=== PATIENT | male | born 1965 | race Caucasian/White ===

== ENCOUNTER 2017-04-14 15:52 | Inpatient (IN) | payer MEDICARE, OTHER ==
[~2017-04-14] VITALS: Ht 152.4 cm; Wt 47.4 kg
--- NOTE | ~2017-04-14 | IDS ---
Interim Discharge Summary [facility] [address] [place]. [address] NAME: SANDI MCGRATH : 69 STATUS : ADM IN PAT#: [id number] AGE: 51 ADM/REG DATE : 04/14/17 MR#: [id number] REPORT SERV DATE: 04/18/17 DICTATED BY: KARI DOWNS DATE: 04/18/17 REPORT STATUS : Draft TRANSCRIBED BY: MODL DATE: 04/18/17 ADMISSION DATE: 04/14/2017 DISCHARGE DATE: PROBLEM LIST: 1. Failure to thrive with severe protein-calorie malnutrition. 2. Major depression, Remeron was started this admission. 3. Pseudomonas bacteremia. 4. Multiple electrolyte abnormalities. 5. Chronic decubitus ulcer. 6. Chronic paraplegia secondary to spina bifida with multiple surgeries. HISTORY OF PRESENT ILLNESS: This is a 51-year-old male patient who lives at home with the family, was brought to the hospital with a "heart is hurting." Please see dictated H and P. HOSPITAL COURSE: He was initially hospitalized for sepsis with the unknown etiology. However, he became very stabilized within a short time. I was not sure whether the patient had real true infection or not. However, he was sure that he had a severe dehydration, malnutrition. He is not eating at home at all and he has been having this issue for at least four to five years since his mother . The patient was put on Remeron and had evaluation with Dr. Gomez who was covering Dr. Baez, agreed, continued on Remeron. And he was on a replacement of all the electrolytes. However, he still not eating very much and he still refused to take the pills and threw up medications, although he says he will eat and drink and take the medication in order to live. Interestingly, the patient's blood culture one out of two came back positive with Enterobacter cloacae. Because of this bacteremia, the patient was seen by Dr. Lynn for possible issue with a soft capsular fluid collection. Dr. Lynn does not think the patient has an infection under that fluid collection, he thinks it is natural course after the hematoma from the surgery on the last admission two weeks ago. And Dr. Greenberg has been managing his antibiotics. Currently, he is on cefepime every six hours. He was put on the IV fluid when correcting multiple electrolyte abnormalities. He is still throwing up and refused pills; however, he was told that either he will survive if he takes the medication and eat and then otherwise, he will be on hospice care and he chose to be alive and take medications, and he and his family decided not to have any feeding tubes. His father also mentioned he has been dealing with this issue for many years and the feeding tube is not appropriate care for him. And after he was discussed with the family members again and father decided that they would like to go to half-way facility to recover first. Many of the physicians have been informing the patient and family regarding his failure to thrive and severe dehydration issue with depression and so far, the patient himself voicing that he understood, and he will take care of himself in terms of his nutrition srinivasan. Even palliative care and hospice were discussed at this point. The patient is not Interim Discharge Summary [address] [address] NAME: SANDI MCGRATH : 69 STATUS : ADM IN [facility]#: [id number] AGE: 51 ADM/REG DATE : 04/14/17 MR#: [id number] REPORT SERV DATE: 04/18/17 DICTATED BY: KARI DOWNS DATE: 04/18/17 REPORT STATUS : Draft TRANSCRIBED BY: DREW DATE: 04/18/17 transferred to that care. Maximizing or replacement and minimizing IV replacement for the next 24 to 48 hours before the discharge to half-way facility. EKL/MODL Kari Downs M.D. / [id number] CC: Meghan Rausch [facility]
--- NOTE | ~2017-04-14 | DS ---
Discharge Summary [place] [id number] [facility] [place]. [address] NAME: SANDI MCGRATH : 69 STATUS : DIS IN PAT#: [id number] AGE: 51 ADM/REG DATE : 04/14/17 MR#: [id number] REPORT SERV DATE: 04/20/17 DICTATED BY: KARI DOWNS DATE: 04/19/17 REPORT STATUS : Draft TRANSCRIBED BY: MODL DATE: 04/19/17 ADMISSION DATE: 04/14/2017 DISCHARGE DATE: 04/19/2017 DISCHARGE DIAGNOSES: 1. Failure to thrive. 2. Severe protein-calorie malnutrition with severe dehydration. 3. Paraplegia. 4. Major depression disorder, Remeron was started. 5. Enterobacter bacteremia, one out of two. Dr. Greenberg recommended an antibiotic treatment until 04/27/2017 with cefepime. 6. Subcapsular hematoma on the liver, Dr. Lynn does not think that it is any source of infection. 7. Chronic decubitus ulcer in the sacrum area in the leg. HISTORY OF PRESENT ILLNESS: This is a 51-year-old male patient who came from home with a complaint about "heart." Please see dictated H and P, and please see the first page of the emergency triage page. HOSPITAL COURSE: Initially, he was admitted to hospital with the sepsis with unknown origin based on the criteria. However, he significantly improved within a few hours after the hydration. He does not look to have any other source of infection. At that time, he did not have a good amount of urine, but it was still clear and his ileal conduit bag. Seen by Dr. Greenberg. Initially, he got a dose of antibiotics including vancomycin and Zosyn. We stopped the antibiotics and tried to look for another reason for him being stressed. Definitely he was dehydrated. He was not eating and drinking at all. We had a conversation with the father and then looked at the old pictures. The story goes back to five years ago when his mother . Since his mother , the patient is likely going down and then gradually it gotten to the point that he does not eat and drink and he lost all the motivations. Interestingly, I was reviewing all the medical records from the [facility]. He had a same stated complaint when he came the last time. Anyhow, the patient has been stabilized, did not have any other symptoms from the multiple electrolyte imbalance, although he has a critical level of low potassium, magnesium, calcium, and albumin levels, he is not in any distress. Therefore, the patient was put on the hydration and also consulted psychiatrist. Dr. Gomez, who was covering Dr. Baez, came by and diagnosed with a major depression and agreed using the Remeron. The Remeron was started on this admission. Even if we had a long conversation with the patient and family, he is still not taking potassium pills, and up until yesterday, he was trying to throwing up the potassium pill. Otherwise, he is taking other medicines well. He voiced that he does not want a feeding tube, but he wants to eat and drink in the life and he will do it, but he has not been doing that much, but it is gradually getting better. Now, again, he is taking all his supplement electrolyte and trying to eat meals and his electrolytes have been replaced. The hardest of the pill that he does not want to take is potassium. On discharge, we are going to put him on the 40 mEq three times a day and diagnosed with failure to thrive and hydration, severe malnutrition, Discharge Summary [address] [place]. [address] NAME: SANDI MCGRATH : 69 STATUS : DIS IN PAT#: [id number] AGE: 51 ADM/REG DATE : 04/14/17 MR#: [id number] REPORT SERV DATE: 04/20/17 DICTATED BY: KARI DOWNS DATE: 04/19/17 REPORT STATUS : Draft TRANSCRIBED BY: DREW DATE: 04/19/17 and major depression along with that and then explained to the father and he voiced understanding, agreed and then father changed the disposition to [facility] facility and they elected to [facility]. The patient will be discharged to [facility] for IV antibiotics until 04/27/2017 and rehabilitation. DISCHARGE MEDICATIONS: 1. Metoprolol 12.5 mg twice a day. 2. Cefepime until 04/27/2017. 3. Potassium 40 mEq twice a day. 4. Mag oxide 800 twice a day. 5. Os-Ivan two tablets twice a day. DISPOSITION: The patient is discharged to [facility] in stable condition. He has a very poor prognosis, and I discussed this prognosis and then plan of care and regarding new prognosis and discharging coordination, and the patient and family education more than 30 minutes. EKL/MODL aKri Downs M.D. / [id number] CC: Meghan Rausch [facility]
--- NOTE | ~2017-04-14 | CN ---
Consultation Report [facility] [address] [place]. [address] NAME: SANDI MCGRATH : 69 STATUS : ADM IN PAT#: [id number] AGE: 51 ADM/REG DATE : 04/14/17 MR#: [id number] REPORT SERV DATE: 04/16/17 DICTATED BY: LILIA LYNN III DATE: 04/16/17 REPORT STATUS : Draft TRANSCRIBED BY: MODTerrie DATE: 04/16/17 DATE OF CONSULTATION: 04/16/2017 Consultation Note The patient is a 51-year-old, cerebral palsy, spina bifida patient who I have been aware of for a number of weeks. He presents now with reported chest pain and a negative workup to this point. He also had multiple electrolyte problems including a diminished potassium, magnesium, calcium, severe malnutrition. The patient is status post laparoscopic cholecystectomy a month ago on 03/15/2017, that included a cholecystectomy for acute disease and a liver biopsy. The patient is along with a number of different problems primarily related to poor p.o. intake which is most likely related to depression. The past history on the patient is significant in that he has spina bifida, paralysis partially below the hip with neurogenic bladder as well as neurogenic neuropathies below the waist. He has the ostomy in the right lower quadrant which is an ileostomy due to his neurogenic bladder. He allegedly had a relocation of his rectum although it seems to be functioning normally. He does have bowel incontinence and no real control of his sphincter but there is a weak tone that he apparently cannot control. He has a history of nephrostomy tube draining to the right. He lives with his father who is in advanced age and his brother who helps take care of him. He has been in a declining state of health over the last few years but since his mother , he has been extremely depressed and anorexic. The patient had an EGD by Dr. Liu on 03/13/2017, that showed very little severe acute change at that time. The patient's home medications have included Bactrim DS and potassium but is not clear whether he has been taking his medications. PHYSICAL EXAMINATION: GENERAL: He is ill appearing, deformed young man, who is oriented x3, but not exactly with normal mental capacity or function. He does not have lateralization in his head. CHEST: His chest was relatively clear with decreased inspiratory effort. GI: His abdomen was soft, nontender with well-healed scars and no tenderness, no CVA tenderness on the right, and no tenderness in the lower abdomen even though he has multiple scars. He had a GI workup that showed no bowel obstruction with a relatively normal to short transit time during his past admission. RECTUM: The rectal exam showed no impaction and there was 1 pill then in his rectal vault that I could not get it out. He still had some kind of very, very weak rectal and is essentially incontinent of stool. He has had liquid stools according to his mother since he went home from the hospital last time. The extremity showed him to have significant decubiti on the left side. In the buttock region he has a relatively large decubitus ulcer that is left-sided 6 x 8.5 x 1 cm with a lot of slough over it. EXTREMITIES: He has another ulcer in the left foot on the lateral aspect of this very deformed foot, it is 2.5 x 1.9 x 0.0 that is a fibrin-covered crusty abrasive or decubitus ulceration. Consultation Report [place] [id number] [facility] [place]. [address] NAME: SANDI MCGRATH : 69 STATUS : ADM IN [facility]#: [id number] AGE: 51 ADM/REG DATE : 04/14/17 MR#: [id number] REPORT SERV DATE: 04/16/17 DICTATED BY: LILIA LYNN III DATE: 04/16/17 REPORT STATUS : Draft TRANSCRIBED BY: DREW DATE: 04/16/17 DATA: CAT scan is reviewed and shows a subcapsular hematoma that is intact without really obvious gas within it and there is 1 small area of either trapped gas or lung bleb that is in the area near the hematoma but I do not believe it is indicative of an infection therein. The patient has had adequate antibiotic coverage post cholecystectomy for his Klebsiella infections at that time. The impression on the patient is primarily plagued with anorexia secondary to severe depression without evidence of any surgical remedy for this young man. I have talked to him in terms of his not living if he does not eat and he states clearly that he wants to live but he has not acted out this ideation. We will try him on some Megace and treat his sepsis although the etiology of which is not clear since his urine really does not look like the culprit but the decubitus ulcers and/or some type of intraabdominal infection certainly could be problematic but I cannot justify at this point in the type of interventional therapy. RB/MODL Lilia Lynn III, M.D. / [id number] CC: Meghan Rausch II
--- NOTE | ~2017-04-14 | HP ---
History And Physical [place] [address] [place]. [address] NAME: SANDI MCGRATH : 69 STATUS : ADM IN PAT#: [id number] AGE: 51 ADM/REG DATE : 04/14/17 MR#: [id number] REPORT SERV DATE: 04/14/17 DICTATED BY: ML LUBIN DATE: 04/14/17 REPORT STATUS : Draft TRANSCRIBED BY: MODL DATE: 04/14/17 DATE OF ADMISSION: 04/14/2017 CHIEF COMPLAINT: Shortness of breath. HISTORY OF PRESENT ILLNESS: A 51-year-old white male with history of cerebral palsy and spina bifida, was brought in by his father with chief complaint of shortness of breath. Unfortunately, the patient is a poor historian, and his father has gone home. The patient had a cholecystectomy last week. While he had a cholecystectomy and was discharged home on 03/27/2017 with a diagnosis of biliary sepsis, post cholecystectomy, he had acute renal failure and possible partial bowel obstruction. All this remained stable, and he was discharge home. He was brought in by his father, complaining of chest pain. Family had refused rehab. The patient is a very poor historian. He was found to have numerous electrolyte abnormalities, and thus, we have been asked to admit the patient. PAST MEDICAL HISTORY: Recent cholecystectomy with postop complications including biliary sepsis and protein-calorie malnutrition, spina bifida with paraplegia, ileal conduit, rectal reimplantation with persistent bowel incontinence, previous cholecystectomy with takedown, left posterior pelvis decubitus ulcer with associated chronic osteomyelitis, previous right below-knee amputation, left ankle wound, chronic postprandial diarrhea, chronic postprandial nausea, fatty liver on liver biopsy, severe protein-calorie malnutrition, and nonobstructing kidney stones. OPERATIONS: He had an open trochanter placement with laparoscopic extensive adhesiolysis and enterolysis and laparoscopic intraoperative cholangiogram and he had a laparoscopic cholecystectomy and had an EGD by Dr. Liu on 03/13/2017. He had numerous corrective bowel and bladder surgeries as a child and also multiple orthopedic surgeries as a child. SOCIAL HISTORY: The patient resides with his father. The patient is verbal but is a very poor historian. He does not drink alcohol or smoke or use illicit drugs. HOME MEDICATIONS: The patient takes Bactrim DS b.i.d. He takes potassium 25 mg b.i.d., and otherwise, does not really take any medications. FAMILY HISTORY AND REVIEW OF SYSTEMS: Unobtainable except as in HPI. PHYSICAL EXAMINATION: VITAL SIGNS: Blood pressure is 101/73, temp 90.6, pulse 119, respirations 16, and O2 saturation is 95% on room air. CONSTITUTIONAL: The patient is alert, appropriate. PSYCHIATRIC: Oriented x3. His memory is not intact. His affect appropriate. HEENT: Atraumatic, normocephalic. Oral palate without lesion. He does have some bitemporal wasting. He has dry oral mucosa. NECK: Supple with no JVD or lymphadenopathy. There is no thyromegaly. RESPIRATORY: Clear to percussion and auscultation. No chest wall tenderness. CARDIOVASCULAR: Tachycardic with no murmurs, gallops, or rubs. History And Physical [address] [place]. [address] NAME: SANDI MCGRATH : 69 STATUS : ADM IN [facility]#: [id number] AGE: 51 ADM/REG DATE : 04/14/17 MR#: [id number] REPORT SERV DATE: 04/14/17 DICTATED BY: ML LUBIN DATE: 04/14/17 REPORT STATUS : Draft TRANSCRIBED BY: DREW DATE: 04/14/17 ABDOMEN: Soft with no tenderness, no rebound. He has well healed cholecystectomy scars. He does have an ileal conduit. EXTREMITIES: He has a stage IV decubitus ulcer which appears clean on the left hip. It does have a slight smell. On his left heel, he has a small ulcer, which appears clean and dry. NEUROLOGIC: He has some spasticity. He has no sensation in his lower extremities. He can move his left lower extremity. He can move his arms. SKIN: His perineum is wet as he has chronic fecal incontinence. LYMPHATIC: There is no obvious adenopathy in neck, axilla, or femoral region. IMAGING: CTA of the chest reveals moderate-sized right pleural effusion, otherwise, no evidence of PE. He had a sodium of 131, potassium 2.5, chloride 87, CO2 of 30, glucose 102, calcium 5.2, magnesium 0.8, and troponin less than 0.02. White count 28, hemoglobin 12.7, and platelets 392. IMPRESSIONS/PLAN: 1. Sepsis of unclear source. Abdominal pelvic CT will be performed. Could also be secondary to chronic osteomyelitis of left hip. We will empirically place the patient on IV vancomycin and IV Zosyn. 2. Numerous electrolyte abnormalities, we will replete. 3. Poor IV access. We will place PICC line. 4. Severe protein calorie malnutrition. 5. Sepsis of unclear source. We will ask ID to see. 6. Left decubitus ulcer of ischium. We will ask Wound Care to see. 7. Cerebral palsy and spina bifida. 8. Recent cholecystectomy. 9. Ileal conduit. NGM/MODL Ml Lubin MD / [id number] CC: Meghan Rausch II
[~2017-04-14 15:52] MED LIST: *UNABLE1; BACDS PO; IODOSORB TOP; KLYTECL PO; LOM PO; PROTONIX PO
[2017-04-14 16:38] LABS: BASOPHILS 0.1 %; BASOPHILS ABSOLUTE 0.02 10/3/uL (0.0-0.16); EOSINOPHILS 0.1 %; EOSINOPHILS ABSOLUTE 0.03 10/3/uL (0.0-0.53); IMMATURE GRANULOCYTES 0.8 %; IMMATURE GRANULOCYTES ABSOLUTE 0.22 10/3/uL (0.0-0.11); LYMPHOCYTES 6.2 %; LYMPHOCYTES ABSOLUTE 1.74 10/3/uL (0.67-4.30); MEAN CORPUS HGB CONC 33.7 g/dL (32.0-36.0); MEAN CORPUSCULAR HEMOGLOB 29.2 pg (26.0-34.0); MEAN PLATELET VOLUME 11.8 fL (9.2-13.0); MONOCYTES 6.2 %; MONOCYTES ABSOLUTE 1.75 10/3/uL (0.21-1.20); NEUTROPHILS 86.6 %; NEUTROPHILS ABSOLUTE 24.51 10/3/uL (2.02-8.40); RBC DISTRIBUTION WIDTH 15.7 % (12.0-16.0)
[2017-04-14 16:42] LABS: ER CBC TAT 0 Hrs 12 Mins; HEMATOCRIT 37.7 % (40.0-51.0); HEMOGLOBIN 12.7 g/dL (13.6-17.8); MANUAL DIFF NO %; MEAN CORPUSCULAR VOLUME 86.7 fL (80-100); PLATELET COUNT 392 10/3/uL (150-400); RED CELL COUNT 4.35 10/6/uL (4.7-6.1); WHITE BLOOD CELLS 28.3 10/3/uL (4.5-10.5)
[2017-04-14 16:45] LABS: INTERNATIONAL NORMAL RATI 1.2 UNITS (-); PARTIAL THROMBO TIME 33.7 SEC (22.5-37.2); PROTIME (NOT ORD) 15.3 SEC (12.0-14.5)
[2017-04-14 16:55] LABS: BUN (BLOOD UREA NITROGEN) 9 MG/DL (6-23); CHEST PAIN PROFILE TAT 0 Hrs 25 Mins; CO2 (CARBON DIOXIDE) 30 MMOL/L (24-34); GLUCOSE, SERUM 102 MG/DL (60-99); TROPONIN I <0.02 NG/ML (<0.05)
[2017-04-14 16:57] LABS: POTASSIUM, SERUM 2.5 MMOL/L (3.5-5.3); SODIUM, SERUM 131 MMOL/L (135-148)
[2017-04-14 16:58] LABS: CALCIUM, SERUM 5.2 MG/DL (8.5-10.4); CHLORIDE, SERUM 87 MMOL/L (96-112); CREATININE 1.34 MG/DL (0.70-1.30); GFR AFRICAN AMERICAN 72 ML/MIN (>=60); GFR NON AFRICAN AMERICAN 62 ML/MIN (>=60)
[2017-04-14 17:01] LABS: ER DIFF TAT 0 Hrs 31 Mins; LYMPHOCYTES 1 %; LYMPHOCYTES ABSOLUTE (CALC) 0.28 10/3/uL (0.67-4.30); MONOCYTES 5 %; MONOCYTES ABSOLUTE (CALC) 1.42 10/3/uL (0.21-1.20); PLATELET ESTIMATE ADQ (ADEQUATE); RBC MORPHOLOGY NORM (NORMAL); SEGMENTED NEUTROPHIL (0) 94 %; TOTAL NUCLEATED CELLS 100
[2017-04-14 17:37] LABS: D-DIMER QUANTITATIVE 3.08 ug/mLFEU (< 0.50)
[2017-04-14 21:32] LABS: LACTATE 4.2 MMOL/L (0.3-2.4)
[2017-04-15 06:54] LABS: HEMATOCRIT 34.5 % (40.0-51.0); HEMOGLOBIN 11.6 g/dL (13.6-17.8); MEAN CORPUS HGB CONC 33.6 g/dL (32.0-36.0); MEAN CORPUSCULAR VOLUME 86.3 fL (80-100); PLATELET COUNT 334 10/3/uL (150-400); RBC DISTRIBUTION WIDTH 15.7 % (12.0-16.0); WHITE BLOOD CELLS 21.5 10/3/uL (4.5-10.5)
[2017-04-15 06:55] LABS: MANUAL DIFF YES %
[2017-04-15 07:21] LABS: BAND NEUTROPHILS 1 %; BURR CELLS 1+ (3-10/OIF) (0-2/OIF); HYPERSEGMENTED NEUT FEW (6-10%) % (0-5); LYMPHOCYTES 1 %; LYMPHOCYTES ABSOLUTE (CALC) 0.22 10/3/uL (0.67-4.30); MONOCYTES 5 %; MONOCYTES ABSOLUTE (CALC) 1.08 10/3/uL (0.21-1.20); NEUTROPHILS ABSOLUTE (CALC) 20.21 10/3/uL (2.02-8.40); PLATELET ESTIMATE ADQ (ADEQUATE); POIKILOCYTOSIS 1+ (5-10/OIF) (0-5/OIF); SEGMENTED NEUTROPHIL (0) 93 %; TOTAL NUCLEATED CELLS 100
[2017-04-15 07:22] LABS: TOXIC GRANULATION 1+; VACUOLATED NEUTROPHILES 1+
[2017-04-15 08:40] LABS: A/G RATIO 0.3 (0.7-1.9); ALBUMIN 1.3 G/DL (3.5-5.0); CO2 (CARBON DIOXIDE) 27 MMOL/L (24-34); CREATININE 0.88 MG/DL (0.70-1.30); GFR AFRICAN AMERICAN 117 ML/MIN (>=60); GFR NON AFRICAN AMERICAN 101 ML/MIN (>=60); GLOBULIN 3.9 G/DL (2.5-4.1); GLUCOSE, SERUM 89 MG/DL (60-99); SGOT(AST) 19 U/L (5-40); SGPT(ALT) 10 U/L (5-65); SODIUM, SERUM 137 MMOL/L (135-148); TOTAL BILIRUBIN 0.5 MG/DL (0-1.2); TOTAL PROTEIN 5.2 G/DL (6.0-8.5)
[2017-04-15 08:41] LABS: BUN (BLOOD UREA NITROGEN) 5 MG/DL (6-23); CHLORIDE, SERUM 102 MMOL/L (96-112); POTASSIUM, SERUM 4.3 MMOL/L (3.5-5.3)
[2017-04-15 08:51] LABS: ALKALINE PHOSPHATASE 142 U/L (45-117)
[2017-04-15 09:00] LABS: CALCIUM, SERUM < 5.0 MG/DL (8.5-10.4)
[2017-04-15 09:21] LABS: PROCALCITONIN 0.33 ng/mL (<0.5)
[2017-04-16 06:17] LABS: BASOPHILS 0.1 %; BASOPHILS ABSOLUTE 0.01 10/3/uL (0.0-0.16); EOSINOPHILS 0.6 %; EOSINOPHILS ABSOLUTE 0.07 10/3/uL (0.0-0.53); HEMATOCRIT 28.2 % (40.0-51.0); HEMOGLOBIN 9.3 g/dL (13.6-17.8); IMMATURE GRANULOCYTES 1.1 %; IMMATURE GRANULOCYTES ABSOLUTE 0.13 10/3/uL (0.0-0.11); LYMPHOCYTES 16.7 %; LYMPHOCYTES ABSOLUTE 1.95 10/3/uL (0.67-4.30); MANUAL DIFF NO %; MEAN CORPUSCULAR HEMOGLOB 28.6 pg (26.0-34.0); MEAN CORPUSCULAR VOLUME 86.8 fL (80-100); MEAN PLATELET VOLUME 11.2 fL (9.2-13.0); MONOCYTES 11.8 %; MONOCYTES ABSOLUTE 1.38 10/3/uL (0.21-1.20); NEUTROPHILS 69.7 %; NEUTROPHILS ABSOLUTE 8.14 10/3/uL (2.02-8.40); PLATELET COUNT 273 10/3/uL (150-400); RBC DISTRIBUTION WIDTH 15.8 % (12.0-16.0); RED CELL COUNT 3.25 10/6/uL (4.7-6.1); WHITE BLOOD CELLS 11.7 10/3/uL (4.5-10.5)
[2017-04-16 11:44] LABS: ASCORBIC ACID (UR NOT ORDER) NEG (NEG); BILIRUBIN, URINE NEGATIVE (NEG); KETONE, URINE NEGATIVE (NEG); LEUKOCYTE ESTERASE(NOT OR SMALL (NEG); WBC (NOT ORDERED) (RFLEX) 6 (0-5)
[2017-04-16 13:00] LABS: CHLORIDE, SERUM 95 MMOL/L (96-112); CREATININE 1.36 MG/DL (0.70-1.30); GFR AFRICAN AMERICAN 70 ML/MIN (>=60); GFR NON AFRICAN AMERICAN 61 ML/MIN (>=60)
[2017-04-16 13:01] LABS: BUN (BLOOD UREA NITROGEN) 1 MG/DL (6-23); CO2 (CARBON DIOXIDE) 20 MMOL/L (24-34); GLUCOSE, SERUM 991 MG/DL (60-99); POTASSIUM, SERUM 1.5 MMOL/L (3.5-5.3)
[2017-04-16 13:03] LABS: CALCIUM, SERUM < 5.0 MG/DL (8.5-10.4); SODIUM, SERUM 118 MMOL/L (135-148)
[2017-04-16 15:01] LABS: BUN (BLOOD UREA NITROGEN) 3 MG/DL (6-23); CHLORIDE, SERUM 103 MMOL/L (96-112); CREATININE 1.03 MG/DL (0.70-1.30); GFR AFRICAN AMERICAN 98 ML/MIN (>=60); GFR NON AFRICAN AMERICAN 85 ML/MIN (>=60)
[2017-04-16 15:03] LABS: CO2 (CARBON DIOXIDE) 29 MMOL/L (24-34); GLUCOSE, SERUM 87 MG/DL (60-99); POTASSIUM, SERUM 1.8 MMOL/L (3.5-5.3); SODIUM, SERUM 141 MMOL/L (135-148)
[2017-04-16 15:04] LABS: CALCIUM, SERUM < 5.0 MG/DL (8.5-10.4)
[2017-04-17 06:41] LABS: BASOPHILS 0.1 %; BASOPHILS ABSOLUTE 0.01 10/3/uL (0.0-0.16); EOSINOPHILS 0.9 %; EOSINOPHILS ABSOLUTE 0.11 10/3/uL (0.0-0.53); HEMATOCRIT 28.4 % (40.0-51.0); HEMOGLOBIN 9.6 g/dL (13.6-17.8); IMMATURE GRANULOCYTES 0.6 %; IMMATURE GRANULOCYTES ABSOLUTE 0.08 10/3/uL (0.0-0.11); LYMPHOCYTES 15.8 %; LYMPHOCYTES ABSOLUTE 2.02 10/3/uL (0.67-4.30); MEAN CORPUS HGB CONC 33.8 g/dL (32.0-36.0); MEAN CORPUSCULAR HEMOGLOB 29.3 pg (26.0-34.0); MEAN CORPUSCULAR VOLUME 86.6 fL (80-100); MEAN PLATELET VOLUME 11.4 fL (9.2-13.0); MONOCYTES 9.9 %; MONOCYTES ABSOLUTE 1.26 10/3/uL (0.21-1.20); NEUTROPHILS 72.7 %; PLATELET COUNT 283 10/3/uL (150-400); RBC DISTRIBUTION WIDTH 16.1 % (12.0-16.0); RED CELL COUNT 3.28 10/6/uL (4.7-6.1); WHITE BLOOD CELLS 12.8 10/3/uL (4.5-10.5)
[2017-04-17 06:47] LABS: MANUAL DIFF NO %
[2017-04-17 07:02] LABS: A/G RATIO 0.3 (0.7-1.9); ALKALINE PHOSPHATASE 125 U/L (45-117); BUN (BLOOD UREA NITROGEN) 2 MG/DL (6-23); CALCIUM, SERUM 5.2 MG/DL (8.5-10.4); CHLORIDE, SERUM 105 MMOL/L (96-112); CO2 (CARBON DIOXIDE) 29 MMOL/L (24-34); CREATININE 0.98 MG/DL (0.70-1.30); FREE T4 1.35 NG/DL (0.76-1.46); GFR AFRICAN AMERICAN 105 ML/MIN (>=60); GFR NON AFRICAN AMERICAN 90 ML/MIN (>=60); GLOBULIN 3.5 G/DL (2.5-4.1); GLUCOSE, SERUM 88 MG/DL (60-99); PHOSPHORUS, SERUM 2.2 MG/DL (2.5-4.5); POTASSIUM, SERUM 1.8 MMOL/L (3.5-5.3); SGOT(AST) 16 U/L (5-40); SGPT(ALT) 12 U/L (5-65); SODIUM, SERUM 142 MMOL/L (135-148); TOTAL BILIRUBIN 0.3 MG/DL (0-1.2); TOTAL PROTEIN 4.5 G/DL (6.0-8.5)
[2017-04-18 07:21] LABS: POTASSIUM, SERUM 2.3 MMOL/L (3.5-5.3)
[2017-04-19 07:22] LABS: POTASSIUM, SERUM 2.9 MMOL/L (3.5-5.3)
[2017-04-19 14:04] LABS: BASOPHILS 0.2 %; BASOPHILS ABSOLUTE 0.02 10/3/uL (0.0-0.16); EOSINOPHILS 0.6 %; EOSINOPHILS ABSOLUTE 0.08 10/3/uL (0.0-0.53); HEMOGLOBIN 10.5 g/dL (13.6-17.8); IMMATURE GRANULOCYTES 0.5 %; IMMATURE GRANULOCYTES ABSOLUTE 0.06 10/3/uL (0.0-0.11); LYMPHOCYTES 14.7 %; LYMPHOCYTES ABSOLUTE 1.93 10/3/uL (0.67-4.30); MEAN CORPUS HGB CONC 33.1 g/dL (32.0-36.0); MEAN CORPUSCULAR HEMOGLOB 28.7 pg (26.0-34.0); MEAN CORPUSCULAR VOLUME 86.6 fL (80-100); MEAN PLATELET VOLUME 11.3 fL (9.2-13.0); MONOCYTES 8.1 %; MONOCYTES ABSOLUTE 1.06 10/3/uL (0.21-1.20); NEUTROPHILS 75.9 %; NEUTROPHILS ABSOLUTE 9.97 10/3/uL (2.02-8.40); PLATELET COUNT 320 10/3/uL (150-400); RBC DISTRIBUTION WIDTH 16.4 % (12.0-16.0); RED CELL COUNT 3.66 10/6/uL (4.7-6.1); WHITE BLOOD CELLS 13.1 10/3/uL (4.5-10.5)
[2017-04-19 14:06] LABS: HEMATOCRIT 31.7 % (40.0-51.0); MANUAL DIFF NO %
[2017-04-19 14:18] LABS: BUN (BLOOD UREA NITROGEN) 2 MG/DL (6-23); CHLORIDE, SERUM 108 MMOL/L (96-112); CO2 (CARBON DIOXIDE) 23 MMOL/L (24-34); CREATININE 0.86 MG/DL (0.70-1.30); GFR AFRICAN AMERICAN 118 ML/MIN (>=60); GFR NON AFRICAN AMERICAN 102 ML/MIN (>=60); GLUCOSE, SERUM 109 MG/DL (60-99); POTASSIUM, SERUM 3.1 MMOL/L (3.5-5.3); SODIUM, SERUM 142 MMOL/L (135-148)
[2017-04-19 14:19] LABS: CALCIUM, SERUM 5.7 MG/DL (8.5-10.4)
== END 2017-04-19 21:00 | DRG 871 ==
LOC: ER 15:52 → 2SO 22:19
PROVIDERS: Emergency Medicine; Internal Medicine; Internal Medicine Infectious Disease; Student in an Organized Health Care Education/Training Program
PROC: 02HV33Z Insertion of Infusion Device into Superior Vena Cava, Percutaneous Approach (ICD-10-PCS; principal; 2017-04-19)
DX: A41.52 Sepsis due to Pseudomonas (principal); E43 Unspecified severe protein-calorie malnutrition; L89.159 Pressure ulcer of sacral region, unspecified stage; J90 Pleural effusion, not elsewhere classified; S36.112A Contusion of liver, initial encounter; E86.0 Dehydration; Z68.1 Body mass index [BMI] 19.9 or less, adult; M86.68 Other chronic osteomyelitis, other site; E87.1 Hypo-osmolality and hyponatremia; K76.0 Fatty (change of) liver, not elsewhere classified; M16.12 Unilateral primary osteoarthritis, left hip; G80.9 Cerebral palsy, unspecified; F32.9 Major depressive disorder, single episode, unspecified; P11.5 Birth injury to spine and spinal cord; N20.0 Calculus of kidney; R62.7 Adult failure to thrive; N31.9 Neuromuscular dysfunction of bladder, unspecified; E83.42 Hypomagnesemia; E83.51 Hypocalcemia; E87.6 Hypokalemia; K52.9 Noninfective gastroenteritis and colitis, unspecified; L89.629 Pressure ulcer of left heel, unspecified stage; Q05.9 Spina bifida, unspecified; Z89.511 Acquired absence of right leg below knee; Z98.890 Other specified postprocedural states; Z93.2 Ileostomy status
CPT/HCPCS: 36569; 71010; 71275; 74176; 80048; 80053; 81001; 82330; 83605; 83735; 84100; 84132; 84145; 84439; 84443; 84484; 85025; 85379; 85610; 85730; 87040; 87077; 87086; 87150; 87186; 93005; 96365; 96366; 96367; 96375; 97161-GP; 99285; A9270-GY; C1751; G8978-CL-GP; G8979-CJ-GP; J0610; J0692; J2405; J2543; J3370; J3411; J3475; Q9967